=== PATIENT | male | born 1955 | race Caucasian/White ===

== ENCOUNTER → 2016-12-02 | Outpatient (CLI) | payer BC ==
--- NOTE | 2016-12-02 12:25 | REP ---
CT HEAD WITHOUT CONTRAST: HISTORY: Infarction. COMPARISON: 08/13/2016. Areas of confluent decreased attenuation are present in the periventricular and subcortical white matter of the parietal lobes. There is no intraparenchymal hemorrhage, mass or midline shift. The ventricular system and cortical sulci are dilated consistent with mild volume loss. There is no extracerebral collection. The visualized sinuses are clear. A 1.4 cm metallic foreign body is present overlying the nasal bones. IMPRESSION: There are areas of confluent decreased attenuation in the parietal lobes that are unchanged compared to the previous study. This may represent small vessel ischemic disease or the sequela of previous infectious , metabolic or toxic encephalopathy. Signed by Sergio Alvarado MD 12/02/2016 12:28 P
== END ==
LOC: M RAD 11:46
PROVIDERS: ATTEND Psychiatry & Neurology Neurology
DX: H53.462 Homonymous bilateral field defects, left side (principal); I63.09 Cerebral infarction due to thrombosis of other precerebral artery

== ENCOUNTER → 2017-02-23 | Day surgery (SDC) | payer BC ==
[~2017-02-23] VITALS: Ht 177.8 cm; Wt 92.1 kg
[~2017-02-23] MED LIST: ASPI1TAB24 PO; ATOR40TA PO; CHLO125TA PO; CLOP75TA2 PO; EPINEPHrine 1MG/ML INJ 30ML MD-VIAL As Ordered ONE; LATA5OPD OU; LIDOCAINE W/EPINEPHRINE 1% 20ML VIAL As Ordered ONE; LR 1,000 ML IV SCH; MIDAZOLAM INJ 2 MG/2 ML VIAL (J2250) As Ordered ONE; NITR4TASL SL; OMEP20CA3 PO; ONDANSETRON 4MG/2ML VIAL (J2405) As Ordered ONE; ONDANSETRON 4MG/2ML VIAL (J2405) IV PRN; PERI4TAB PO; POLYSPORIN TOPICAL OINTMENT 15GM As Ordered ONE; PROPOFOL 200 MG/20 ML VIAL As Ordered ONE; REFR1DRO6 OP; ROCURONIUM BROMIDE 50 MG/5 ML VIAL As Ordered ONE; SPIR25TA2 PO; SUCCINYLCHOLINE 100 MG/5 ML SYRINGE (J0330) As Ordered ONE; TYLE1TAB5 PO; TYLE325C PO; dexameTHASONE 4 MG/ML 1ML VIAL (J1100) As Ordered ONE; dexameTHASONE 4 MG/ML 1ML VIAL (J1100) IV ONE; fentaNYL 100 MCG/2 ML INJECTION (J3010) As Ordered ONE; fentaNYL 100 MCG/2 ML INJECTION (J3010) IV PRN
[2017-02-23 15:50] VITALS: BP 148/78
--- NOTE | 2017-03-07 10:44 | RO ---
DATE OF PROCEDURE: 02/23/2017 PREOPERATIVE DIAGNOSIS: Foreign body over the right nasal dorsum. POSTOPERATIVE DIAGNOSIS: Foreign body over the right nasal dorsum. PROCEDURE PERFORMED: Excision of the right nasal dorsum foreign body. SURGEON: Bradley Santa MD RETAIL PHARMACY TECHNICIAN: ANESTHESIA: General. CLINICAL PREAMBLE: This 62-year-old man was noticed to have a foreign body of metallic origin when SD was attempted. X-ray revealed a foreign object in the nasal dorsum in the right paramedian position. Management options including excision of the metallic foreign body from the nasal dorsum have been discussed. The patient understood and consented to the procedure. DESCRIPTION OF PROCEDURE: OR narration: Patient was identified in preoperative holding and had the location of the foreign marked over the right nasal dorsum. He was brought to the operating room in stable condition. In supine position on the operating table, patient received general anesthesia followed by orotracheal intubation without incident. Patient was prepped and draped in the usual fashion for the procedure. Both eyes were protected. The natural transverse skin crease was noted at the nasion of the right nasal dorsum. Incision was made in this natural skin crease. Dissection was carried down through the subcutaneous tissue to the level of the foreign body. This foreign body was successfully extracted en bloc. Surrounding fibrotic tissue was also resected as well. The surgical site was then closed using #5-0 Monocryl for deep closure as well as the final skin closure as well. At the end of the procedure, sponge and instrument counts were correct. No complication was encountered. Estimated blood loss was less than 1 mL. General anesthesia was reversed, and patient was extubated and brought to recovery room in stable condition.
== END | disposition home or self-care (01) ==
LOC: M SDC 10:52
PROVIDERS: ATTEND Otolaryngology
DX: S00.35XA Superficial foreign body of nose, initial encounter (principal); I10 Essential (primary) hypertension; I25.10 Atherosclerotic heart disease of native coronary artery without angina pectoris; E78.4 Other hyperlipidemia; I48.91 Unspecified atrial fibrillation; K57.30 Diverticulosis of large intestine without perforation or abscess without bleeding; Z98.61 Coronary angioplasty status; Z79.82 Long term (current) use of aspirin; Z79.899 Other long term (current) drug therapy; Y93.9 Activity, unspecified; Y92.9 Unspecified place or not applicable
CPT/HCPCS: 30310; 88300; J0330; J1100; J2250; J2405; J3010

== ENCOUNTER → 2017-02-25 | Outpatient (CLI) | payer BC ==
[~2017-02-25] MED LIST changes: -EPINEPHrine 1MG/ML INJ 30ML MD-VIAL As Ordered ONE; -LIDOCAINE W/EPINEPHRINE 1% 20ML VIAL As Ordered ONE; -LR 1,000 ML IV SCH; -MIDAZOLAM INJ 2 MG/2 ML VIAL (J2250) As Ordered ONE; -ONDANSETRON 4MG/2ML VIAL (J2405) As Ordered ONE; -ONDANSETRON 4MG/2ML VIAL (J2405) IV PRN; -POLYSPORIN TOPICAL OINTMENT 15GM As Ordered ONE; -PROPOFOL 200 MG/20 ML VIAL As Ordered ONE; -ROCURONIUM BROMIDE 50 MG/5 ML VIAL As Ordered ONE; -SUCCINYLCHOLINE 100 MG/5 ML SYRINGE (J0330) As Ordered ONE; -dexameTHASONE 4 MG/ML 1ML VIAL (J1100) As Ordered ONE; -dexameTHASONE 4 MG/ML 1ML VIAL (J1100) IV ONE; -fentaNYL 100 MCG/2 ML INJECTION (J3010) As Ordered ONE; -fentaNYL 100 MCG/2 ML INJECTION (J3010) IV PRN
--- NOTE | 2017-02-25 13:00 | REP ---
Is sent to views: Comparison is a 2015. On the comparisons study there wais a metallic shrapnel fragment anterior to the bridge of the nose. This is no longer present. Additionally, dental bridge work was present in the mandible previously. This is no longer present. No other radiopaque foreign bodies are identified. Signed by Chance Diaz MD 02/25/2017 12:51 P
== END ==
LOC: M RAD 09:36
PROVIDERS: ATTEND Psychiatry & Neurology Neurology
DX: S00.251A Superficial foreign body of right eyelid and periocular area, initial encounter (principal); X58.XXXA Exposure to other specified factors, initial encounter; Y92.89 Other specified places as the place of occurrence of the external cause; Y93.89 Activity, other specified; Y99.8 Other external cause status

== ENCOUNTER → 2017-03-10 | Outpatient (REF) | payer BC | LOC: M LABNEURO 13:20 | PROVIDERS: ATTEND Psychiatry & Neurology Neurology | DX: E88.9 Metabolic disorder, unspecified (principal) ==

== ENCOUNTER → 2018-01-20 | Outpatient (REF) | payer OTHER ==
[2018-01-20 12:43] LABS: TOTAL 25(OH) VITAMIN D 19.5 NG/ML (30.0-100.0); VITAMIN B12 LEVEL 641 PG/ML (247-911)
[2018-01-20 12:45] LABS: FREE T4 0.89 NG/DL (0.76-1.46); THYROID STIMULATING HORMONE 0.994 uIU/ML (0.358-3.740)
== END ==
LOC: M SFHCPLAZ 10:12
DX: R41.3 Other amnesia (principal)
CPT/HCPCS: 84443

== ENCOUNTER → 2018-02-16 | Outpatient (REF) | payer OTHER ==
[2018-02-16 12:21] LABS: PSA SCREENING 0.34 NG/ML (< 4.0)
== END ==
LOC: M SFHCPLAZ 09:10
DX: N40.1 Benign prostatic hyperplasia with lower urinary tract symptoms (principal)
CPT/HCPCS: 84153

== ENCOUNTER → 2018-02-22 | Outpatient (CLI) | payer OTHER | LOC: M RAD 13:53 | DX: K40.20 Bilateral inguinal hernia, without obstruction or gangrene, not specified as recurrent (principal) | CPT/HCPCS: 76857 ==

== ENCOUNTER → 2018-04-27 | Outpatient (REF) | payer OTHER ==
[2018-04-28 12:01] LABS: ALBUMIN 3.9 GM/DL (3.2-5.2); ALKALINE PHOSPHATASE 58 U/L (45-117); ALT/SGPT 31 U/L (12-78); ANION GAP 7 MEQ/L (8-16); AST/SGOT 18 U/L (7-37); BILIRUBIN,TOTAL 0.7 MG/DL (0.2-1.0); BLOOD UREA NITROGEN 27 MG/DL (7-18); CALCIUM LEVEL 8.9 MG/DL (8.8-10.2); CARBON DIOXIDE LEVEL 31 MEQ/L (21-32); CHLORIDE LEVEL 101 MEQ/L (98-107); CHOLESTEROL LEVEL 131 MG/DL (<200); CHOLESTEROL RISK RATIO 2.787 (<5); CREATININE FOR GFR 1.05 MG/DL (0.70-1.30); GLOMERULAR FILTRATION RATE > 60.0 (>49); GLUCOSE, FASTING 66 MG/DL (70-100); HDL CHOLESTEROL 47 MG/DL (>40); LDL CHOLESTEROL 65.6 MG/DL (<100); NON-HDL-C 84 MG/DL; POTASSIUM SERUM 3.8 MEQ/L (3.5-5.1); SODIUM LEVEL 139 MEQ/L (136-145); TOTAL PROTEIN 6.9 GM/DL (6.4-8.2); TRIGLYCERIDES LEVEL 92 MG/DL (<150)
[2018-04-28 14:04] LABS: HEMATOCRIT 46.1 % (42.0-52.0); HEMOGLOBIN 15.5 g/dl (13.5-17.5); MEAN CORPUSCULAR HEMOGLOBIN 31.1 pg (27.0-33.0); MEAN CORPUSCULAR HGB CONC 33.6 g/dl (32.0-36.5); MEAN CORPUSCULAR VOLUME 92.4 fl (80.0-96.0); PLATELET COUNT, AUTOMATED 201 10^3/uL (150-450); RED BLOOD COUNT 4.99 10^6/uL (4.30-6.10); RED CELL DISTRIBUTION WIDTH 12.6 % (11.5-14.5); WHITE BLOOD COUNT 7.2 10^3/uL (4.0-10.0)
[2018-04-28 14:10] LABS: ADD MANUAL DIFFER YES; DIFF SLIDE NUMBER 327
[2018-04-28 14:43] LABS: ANISOCYTOSIS 1+; ATYPICAL LYMPH 2 % (0-5); LYMPHOCYTES 65 % (16-52); MONOCYTES 7 % (0-8); NEUTROPHILS 26 % (35-75); PLATELET ESTIMATE NORMAL (NORMAL)
== END ==
LOC: M LAB REF 10:36
DX: I10 Essential (primary) hypertension (principal)

== ENCOUNTER → 2018-10-11 | Outpatient (REF) | payer OTHER, MEDICAID ==
[2018-10-11 13:32] LABS: HEMATOCRIT 40.8 % (42.0-52.0); HEMOGLOBIN 13.7 g/dl (13.5-17.5); MEAN CORPUSCULAR HEMOGLOBIN 31.3 pg (27.0-33.0); MEAN CORPUSCULAR HGB CONC 33.6 g/dl (32.0-36.5); MEAN CORPUSCULAR VOLUME 93.2 fl (80.0-96.0); PLATELET COUNT, AUTOMATED 206 10^3/uL (150-450); RED BLOOD COUNT 4.38 10^6/uL (4.30-6.10)
[2018-10-11 13:57] LABS: ANION GAP 8 MEQ/L (8-16); BLOOD UREA NITROGEN 22 MG/DL (7-18); CALCIUM LEVEL 8.7 MG/DL (8.8-10.2); CARBON DIOXIDE LEVEL 31 MEQ/L (21-32); CHLORIDE LEVEL 101 MEQ/L (98-107); CREATININE FOR GFR 1.05 MG/DL (0.70-1.30); GLOMERULAR FILTRATION RATE > 60.0 (>49); GLUCOSE, FASTING 76 MG/DL (70-100); POTASSIUM SERUM 3.4 MEQ/L (3.5-5.1); SODIUM LEVEL 140 MEQ/L (136-145)
== END ==
DX: I25.10 Atherosclerotic heart disease of native coronary artery without angina pectoris (principal)
CPT/HCPCS: 80048

== ENCOUNTER → 2018-12-28 | Outpatient (REF) | payer MEDICAID ==
[~2018-12-28] MED LIST changes: +ASPI-161 PO; -ASPI1TAB24 PO; -ATOR40TA PO; +ATOR40TA75 PO; +SPIR-10 PO; -SPIR25TA2 PO
[2018-12-28 12:20] LABS: BLOOD UREA NITROGEN 19 MG/DL (7-18); CALCIUM LEVEL 8.8 MG/DL (8.8-10.2); CARBON DIOXIDE LEVEL 31 MEQ/L (21-32); CHLORIDE LEVEL 101 MEQ/L (98-107); CHOLESTEROL LEVEL 128 MG/DL (<200); CHOLESTEROL RISK RATIO 3.121 (<5); CREATININE FOR GFR 1.15 MG/DL (0.70-1.30); GLOMERULAR FILTRATION RATE > 60.0 (>49); GLUCOSE, FASTING 100 MG/DL (70-100); HDL CHOLESTEROL 41 MG/DL (>40); LDL CHOLESTEROL 45 MG/DL (<100); NON-HDL-C 87 MG/DL; POTASSIUM SERUM 3.6 MEQ/L (3.5-5.1); SODIUM LEVEL 138 MEQ/L (136-145); TRIGLYCERIDES LEVEL 208 MG/DL (<150)
[2018-12-28 12:27] LABS: TOTAL 25(OH) VITAMIN D 38.2 NG/ML (30.0-100.0)
== END ==
LOC: M SFHCPLAZ 10:33
PROVIDERS: ATTEND Family Medicine
DX: Z13.1 Encounter for screening for diabetes mellitus (principal); E78.5 Hyperlipidemia, unspecified; I10 Essential (primary) hypertension; N40.1 Benign prostatic hyperplasia with lower urinary tract symptoms; E55.9 Vitamin D deficiency, unspecified

== ENCOUNTER 2019-01-23 09:03 | Day surgery (SDC) | payer MEDICAID ==
[~2019-01-23] VITALS: Ht 177.8 cm; Wt 94.8 kg
[~2019-01-23 09:03] MED LIST changes: +DONETAB6 PO; +FLOM0.4C39 PO; +FLON1SPR; +MAGN64TASA PO; +MEMA1TAB2 PO; +METO1TAB32 PO; +NS 1,000 ML IV ONE; +RANI150T PO; +REFR0.5D8 OP; +TRAN1TAB49 PO; +TRAZ-160 PO; +VENL150C43 PO; +XALA0.007 OU
[2019-01-23] MEDS ORDERED: LIDOCAINE 2% INJ 100 MG/5 ML SDV (FOR ANES.) As Ordered ONE (09:56)
[2019-01-23] MEDS ORDERED: PROPOFOL 200 MG/20 ML VIAL As Ordered ONE (09:56)
--- NOTE | 2019-01-23 10:37 | ROOR ---
Patient Name: Sergio Jennings Procedure Date: 01/23/2019 10:10 AM Date of : 1955 Age: 63 Room: [facility] Gender: Male Note Status: Finalized Procedure: Total Colonoscopy to Cecum Indications: Screening for colorectal malignant neoplasm Providers: Lalito Steinberg MD Referring MD: Claudio Schultz MD Requesting Provider: Medicines: Monitored Anesthesia Care Complications: No immediate complications. Procedure: Pre-Anesthesia Assessment: - The heart rate, respiratory rate, oxygen saturations, blood pressure, adequacy of pulmonary ventilation, and response to care were monitored throughout the procedure. The Colonoscope was introduced through the anus and advanced to the cecum, identified by appendiceal orifice and ileocecal valve. The colonoscopy was performed without difficulty. The patient tolerated the procedure well. The quality of the bowel preparation was excellent. Findings: The perianal and digital rectal examinations were normal. No other significant abnormalities were identified in a careful examination of the remainder of the colon. The exam was otherwise without abnormality on direct and retroflexion views. Impression: - The examination was otherwise normal on direct and retroflexion views. - No specimens collected. - The exam was otherwise normal to the cecum. Recommendation: - Patient has a contact number available for emergencies. The signs and symptoms of potential delayed complications were discussed with the patient. Return to normal activities tomorrow. Written discharge instructions were provided to the patient. - High fiber diet. - Discharge patient to home. - Continue present medications. - Repeat colonoscopy in 10 years for screening purposes. - Return to referring physician. - The findings and recommendations were discussed with the patient's family. Lalito Steinberg MD Lalito Steinberg MD 01/23/2019 10:36:43 AM This report has been signed electronically. Number of Addenda: 0 Note Initiated On: 01/23/2019 10:10 AM Estimated Blood Loss: Estimated blood loss: none.
[2019-01-23 11:02] VITALS: BP 161/98
== END 2019-01-23 11:15 | disposition home or self-care (01) ==
LOC: M OPP 09:03
PROVIDERS: ATTEND Internal Medicine Gastroenterology
DX: Z12.11 Encounter for screening for malignant neoplasm of colon (principal); R12 Heartburn; Z79.82 Long term (current) use of aspirin; Z79.899 Other long term (current) drug therapy; Z87.891 Personal history of nicotine dependence

== ENCOUNTER 2019-02-13 09:26 | Emergency (ER) | payer BC, MEDICAID ==
[~2019-02-13] VITALS: Ht 177.8 cm; Wt 96.4 kg
[~2019-02-13 09:26] MED LIST changes: -NS 1,000 ML IV ONE
[2019-02-13 10:37] LABS: BASO % 0.5 % (0.0-1.0); EOS # 0.2 10^3/uL (0.0-0.50); EOS % 2.4 % (0.0-3.0); HEMATOCRIT 39.1 % (42.0-52.0); HEMOGLOBIN 13.3 g/dl (13.5-17.5); LYMPH # 3.8 10^3/uL (1.5-4.5); LYMPH % 49.6 % (24.0-44.0); MEAN CORPUSCULAR HEMOGLOBIN 31.1 pg (27.0-33.0); MEAN CORPUSCULAR VOLUME 91.4 fl (80.0-96.0); MONO # 0.5 10^3/uL (0.0-0.8); MONO % 6.2 % (0.0-5.0); NEUTROPHILS # 3.1 10^3/uL (1.8-7.7); PLATELET COUNT, AUTOMATED 199 10^3/uL (150-450); RED BLOOD COUNT 4.28 10^6/uL (4.30-6.10); WHITE BLOOD COUNT 7.6 10^3/uL (4.0-10.0)
[2019-02-13 11:01] LABS: ALBUMIN 3.7 GM/DL (3.2-5.2); ALT/SGPT 41 U/L (12-78); BILIRUBIN,DIRECT 0.1 MG/DL (0.0-0.2); BILIRUBIN,TOTAL 0.4 MG/DL (0.2-1.0); BLOOD UREA NITROGEN 15 MG/DL (7-18); CALCIUM LEVEL 8.4 MG/DL (8.8-10.2); CARBON DIOXIDE LEVEL 33 MEQ/L (21-32); CHLORIDE LEVEL 105 MEQ/L (98-107); CPK CREATINE PHOSPHOKINASE 72 U/L (39-308); CREATININE FOR GFR 0.98 MG/DL (0.70-1.30); GLOMERULAR FILTRATION RATE > 60.0 (>49); GLUCOSE, FASTING 82 MG/DL (70-100); LIPASE 195 U/L (73-393); MB/CK RELATIVE INDEX 2.08 (< OR =4); POTASSIUM SERUM 3.8 MEQ/L (3.5-5.1); SODIUM LEVEL 140 MEQ/L (136-145); TOTAL PROTEIN 6.5 GM/DL (6.4-8.2); TROPONIN I < 0.02 NG/ML (< 0.10)
[2019-02-13] MEDS ORDERED: ISOVUE-370 76% 125ML VIAL (Q9967 PER ML) As Ordered ONE (11:13)
--- NOTE | 2019-02-13 12:05 | REP ---
CT ABDOMEN AND PELVIS WITH IV CONTRAST: TECHNIQUE: Axial contrast enhanced images from the lung bases to the pubic symphysis using 100 mL Isovue 370 intravenous contrast material with multiplanar reformations. In the visualized lung bases, there is patchy parenchymal opacity in the right middle lobe inferomedially and also in the inferior lingula. This may represent fibroatelectatic change. However, mild infiltrate could also have this appearance. The liver, spleen, adrenals, pancreas, and kidneys are unremarkable. There is no hydronephrosis bilaterally. There is mild to moderate atherosclerotic calcification of the abdominal aorta. There is dilatation of the distal abdominal aorta up to 3.5 cm. Right common iliac artery is also dilated up to 1.8 cm in diameter. I see no adenopathy. There is no free air or free fluid. I see no bowel wall thickening. There is no evidence of appendicitis. No pelvic mass is seen. There is a small right inguinal hernia containing fat. There is a slightly larger left inguinal hernia containing fat as well as a small portion of sigmoid colon. There is no bowel obstruction. The urinary bladder is unremarkable. IMPRESSION: No evidence of appendicitis. No free air or free fluid. Mild bibasilar fibroatelectatic change versus early infiltrate. Small abdominal aortic aneurysm distally 3.5 cm in diameter with ectasia of the right common iliac artery 1.8 cm in diameter. Small right inguinal hernia contains fat. Slightly larger left inguinal hernia contains a small portion of sigmoid colon but does not cause bowel obstruction. Electronically Signed by Chance Martin MD 02/15/2019 10:58 A
[2019-02-13 14:41] VITALS: BP 128/78
--- NOTE | 2019-02-13 15:33 | ECGEPIP ---
Stationary ECG Study [facility] - ED Test Date: 2019-02-13 Pat Name: CJ ALBERTS Department: Room: - Gender: M Counsellors: : 1955 Requested By: Candy Kaminski Order Number: [id number] Reading MD: Osvaldo Rodriguez Measurements Intervals [place] Rate: 69 P: 40 VA: 173 QRS: 26 QRSD: 110 T: 46 QT: 381 QTc: 408 Interpretive Statements SINUS RHYTHM INCOMPLETE RIGHT BUNDLE BRANCH BLOCK NO PRIORS FOR COMPARISON Electronically Signed On 02-13-2019 15:32:55 EDT by Osvaldo Rodriguez
--- NOTE | 2019-02-15 12:06 | ED PDOC ---
Post-Departure Follow-Up dr cai and dr bloom faxed formal report of ct abd/p for fu Kate Chambers MD Feb 15, 2019 12:06
== END 2019-02-13 14:42 | disposition home or self-care (01) ==
LOC: M ED 09:26
DX: R10.9 Unspecified abdominal pain (principal); I71.4 Abdominal aortic aneurysm, without rupture; I45.19 Other right bundle-branch block; K40.20 Bilateral inguinal hernia, without obstruction or gangrene, not specified as recurrent; I10 Essential (primary) hypertension; F32.9 Major depressive disorder, single episode, unspecified; F03.90 Unspecified dementia, unspecified severity, without behavioral disturbance, psychotic disturbance, mood disturbance, and anxiety; Z79.82 Long term (current) use of aspirin; Z79.899 Other long term (current) drug therapy
CPT/HCPCS: 74177; 80048; 80076; 81001; 82550; 82553; 83690; 85025; 86850; 86900; 86901; 93005; 93041; 99285; Q9967

== ENCOUNTER → 2019-02-24 | Outpatient (CLI) | payer MEDICAID ==
--- NOTE | 2019-02-24 10:27 | REP ---
ULTRASOUND ABDOMINAL AORTA: Real-time sonographic evaluation of the abdominal aorta is performed and correlated with recent CT exam 02/13/2019. There is fusiform aneurysmal dilatation of the distal abdominal aorta with minimal AP diameter of 3.7 cm. The very proximal aspect of the abdominal aorta just below the diaphragm is obscured by overlying bowel gas. Mid aspect of the abdominal aorta measures 2.1-2.3 cm in maximum AP dimension and distally just above the bifurcation 2.3 cm in maximum AP dimension. Common iliac arteries are mildly ectatic, right measuring 1.6 cm and the left 1.5 cm in AP dimension. Scattered atherosclerotic calcifications are present. IMPRESSION: Fusiform aneurysmal dilatation of the distal abdominal aorta with maximum AP diameter 3.7 cm. Electronically Signed by Chance Martin MD 02/24/2019 03:33 P
== END ==
LOC: M RAD 09:13
PROVIDERS: ATTEND Family Medicine
DX: I71.4 Abdominal aortic aneurysm, without rupture (principal)

== ENCOUNTER → 2019-06-28 | Outpatient (REF) | payer MEDICARE, MEDICAID ==
[~2019-06-28] MED LIST changes: +LATA0.0013 OU; -LATA5OPD OU; -OMEP20CA3 PO; +OMEP20CA4 PO; -TRAZ-160 PO; +TRAZ-252 PO
[2019-06-28 13:32] LABS: BLOOD UREA NITROGEN 16 MG/DL (7-18); CALCIUM LEVEL 9.1 MG/DL (8.8-10.2); CARBON DIOXIDE LEVEL 31 MEQ/L (21-32); CHLORIDE LEVEL 102 MEQ/L (98-107); CREATININE FOR GFR 1.06 MG/DL (0.70-1.30); GLOMERULAR FILTRATION RATE > 60.0 (>49); GLUCOSE, FASTING 85 MG/DL (70-100); POTASSIUM SERUM 3.4 MEQ/L (3.5-5.1); SODIUM LEVEL 138 MEQ/L (136-145)
[2019-06-28 13:47] LABS: HEMOGLOBIN A1c 5.5 %
== END ==
LOC: M SFHCPLAZ 11:00
PROVIDERS: ATTEND Family Medicine
DX: R73.03 Prediabetes (principal)
CPT/HCPCS: 36415; 80048; 83036; G0463

== ENCOUNTER 2019-08-12 10:33 | Inpatient (IN) | payer MEDICARE, MEDICAID ==
[~2019-08-12] VITALS: Ht 182.9 cm; Wt 101.2 kg
[~2019-08-12 10:33] MED LIST changes: -FLON1SPR; +FLON1SPR NARES; -REFR0.5D8 OP; +REFR0.5D8 OU
[2019-08-12] MEDS ORDERED: AMIODARONE 150MG/3ML INJ (J0282) IVP STA (10:37)
[2019-08-12] MEDS ORDERED: AMIODARONE HCL 150 MG/100 ML PREMIXED BAG (NEXTERONE) As Ordered ONE (10:51)
[2019-08-12 10:58] LABS: HEMATOCRIT 41.1 % (42.0-52.0); HEMOGLOBIN 14.2 g/dl (13.5-17.5); MEAN CORPUSCULAR HEMOGLOBIN 32.1 pg (27.0-33.0); MEAN CORPUSCULAR HGB CONC 34.5 g/dl (32.0-36.5); PLATELET COUNT, AUTOMATED 248 10^3/uL (150-450); RED BLOOD COUNT 4.42 10^6/uL (4.30-6.10)
[2019-08-12 10:59] LABS: WHITE BLOOD COUNT 20.5 10^3/uL (4.0-10.0)
[2019-08-12] MEDS: AMIODARONE HCL 150 MG in APPROPRIATE DILUENT 1 EA IV SCH ×2 (11:00→11:10)
[2019-08-12] MEDS ORDERED: AMIODARONE HCL 150 MG in APPROPRIATE DILUENT 1 EA IV STA (11:20)
[2019-08-12 11:22] LABS: CALCIUM LEVEL 8.8 MG/DL (8.8-10.2); CK-MB VALUE MASS 3.9 NG/ML (<3.6); CREATININE FOR GFR 1.99 MG/DL (0.70-1.30); GLOMERULAR FILTRATION RATE 36.4 (>49); MB/CK RELATIVE INDEX 3.75 (< OR =4); POTASSIUM SERUM 3.7 MEQ/L (3.5-5.1); TROPONIN I 0.55 NG/ML (< 0.10)
[2019-08-12 11:25] LABS: ATYPICAL LYMPH 1 % (0-5); LYMPHOCYTES 35 % (16-44); MONOCYTES 10 % (0-5); NEUTROPHILS 54 % (28-66); PLATELET ESTIMATE NORMAL (NORMAL)
[2019-08-12] MEDS ORDERED: NS 1,000 ML IV ONE (11:30)
--- NOTE | 2019-08-12 12:03 | REP ---
REASON: Dyspnea. PRIORS: None. The technique utilized in obtaining the radiograph has magnified the cardiac silhouette and accentuated the interstitial markings. The interstitial markings are slightly diffusely increased with a mild haziness seen throughout the vascularity with evidence to suggest pulmonary vascular redistribution, but on this limited portable exam, early Kelly B lines can not be ruled out. The pleural angles are sharp. There are no patchy parenchymal opacities. The osseous structures are normal. IMPRESSION: Possible early CHF. Electronically Signed by Francesco Ramos DO 08/12/2019 12:26 P
[2019-08-12] MEDS ORDERED: SLOWTAB2 PO (12:09)
[2019-08-12] MEDS ORDERED: ACET1TAB55 PO (12:09)
[2019-08-12] MEDS ORDERED: CHLO25TA PO (12:09)
[2019-08-12] MEDS ORDERED: MEXILETINE 150 MG CAP PO ONE (12:30)
[2019-08-12] MEDS ORDERED: ACETAMINOPHEN 650 MG SUPP PR PRN (12:30)
[2019-08-12] MEDS ORDERED: SCOPOLAMINE 1MG TRANSDERMAL PATCH TOP PRN (12:30)
[2019-08-12 14:00] VITALS: BP 142/95
--- NOTE | 2019-08-12 20:21 | HPEPDOC ---
General Date of Admission Aug 12, 2019 at 12:30 Date of Service: Aug 12, 2019 Primary Care Physician: FRANCISCO JAVIER RAE MD Chief Complaint The patient is a 64-year-old male admitted with a reason for visit of Sustained Ventricular Tachycardia. Source: Old records Exam Limitations: Mild cognitive slowing Timing/Duration: This afternoon Severity: Severe Associated Symptoms: Unobtainable History of Present Illness This is a 64-year-old male with a history of dementia. He had acute onset of ventricular tachycardia. This was sustained. It was unresponsive to any inter ventions such as amiodarone or mexiletine. The patient had an advanced directive in the form of a MOLST that clearly stated he was DNR. We explained to the patient that he could rescind his DNR in order to undergo cardioversion but he clearly stated to leave it as it was. His brother supported his wishes. The patient complained of mild stomach discomfort. Otherwise, he denied any symptoms. He did not have any chest pain or shortness of breath. Home Medications Scheduled Aspirin (Aspirin EC) 81 Mg Tab, 81 MG PO DAILY, (Reported) Atorvastatin Calcium (Atorvastatin Calcium) 40 Mg Tab, 40 MG PO QHS, (Reported) Chlorthalidone (Chlorthalidone) 25 Mg Tablet, 25 MG PO DAILY, (Reported) Donepezil Hcl (Donepezil HCl Odt) 10 Mg Tab, 10 MG PO DAILY, (Reported) Fluticasone Propionate (Flonase Allergy Relief) 50 Mcg/Act Spr, 1 SPRAY NARES QHS, (Reported) Latanoprost (Xalatan) 0.005 % Geraldine, 1 DROP OU DAILY, (Reported) Magnesium Chloride (Slow-Mag) 71.5 Mg Tablet.dr, 71.5 MG PO DAILY, (Reported) Memantine HCl (Memantine HCl) 10 Mg Tab, 10 MG PO BID, (Reported) Metoprolol Succinate (Metoprolol Succinate) 25 Mg Tab, 25 MG PO DAILY, (Reported) Ranitidine HCl (Ranitidine HCl) 150 Mg Tab, 1 TAB PO QHS, (Reported) Tamsulosin HCl (Flomax) 0.4 Mg Cap, 0.4 MG PO DAILY, (Reported) Trandolapril (Trandolapril) 4 Mg Tab, 4 MG PO DAILY, (Reported) Venlafaxine HCl (Venlafaxine HCl ER) 150 Mg Cap, 150 MG PO DAILY, (Reported) Scheduled PRN Acetaminophen (Acetaminophen) 325 Mg Tablet, 325 MG PO Q4H PRN for PAIN, (Reported) Carboxymethylcellulose Sodium (Refresh Tears) 0.5 % Krishna, 1 DROP OU for DRY EYES, (Reported) Nitroglycerin (Nitrostat) 0.4 Mg Subl, 0.4 MG SL Q5MP PRN for CHEST PAIN, (Reported) Trazodone HCl (Trazodone HCl) 50 Mg Tab, 50 MG PO QHS PRN for INSOMNIA, (Reported) Allergies Coded Allergies: No Known Allergies (Unverified , 08/12/19) Past Medical History Medical History History is obtained from review of the medical record. Patient has a history of abdominal aortic aneurysm of 3.5 cm, basal cell carcinoma, history of stroke with some residual motor deficit, the aforementioned Alzheimer's dementia, coronary artery disease for which he's undergone percutaneous intervention and stent placement, essential hypertension, gastroesophageal reflux disease. Surgical History Surgical history per medical record review includes right knee arthroscopic surgery, right inguinal hernia repair Family History There is maternal history of coronary artery disease, skin cancer and Alzheimer's. There is paternal history of prostate cancer. Social History * Smoker: former Smoker (reported remote for 5 years) Alcohol: occationally Drugs: denies Psychosocial History: Dementia The patient apparently lives with his brother. I otherwise am unable to elicit other social history. A-FIB/CHADSVASC A-FIB History Current/History of A-Fib/PAF?: No Current PO Anticoag Therapy: No Review of Systems Other systems 10 systems review is otherwise negative; I am unable to have full conversation with the patient and there is limited information in the medical records. Physical Examination General Exam: Positive: Cooperative, No Acute Distress Eye Exam: Positive: PERRLA, Conjunctiva & lids normal ENT Exam: Positive: Atraumatic, Mucous membr. moist/pink, Nares Patent Neck Exam: Positive: Supple; Negative: JVD, thyromegaly, +2 carotid pulse wo bruit, Lymphadenopathy, Other Chest Exam: Positive: Clear to auscultation, Normal air movement Heart Exam: Positive: Tachycardic Abdomen Exam: Positive: Normal bowel sounds Extremity Exam: Positive: Normal pulses; Negative: Clubbing, Cyanosis, Edema Skin Exam: Positive: Lesion (areas of prior basal cell carcinoma lesions) Neuro Exam: Positive: Normal Speech (when he speaks) Psych Exam: Positive: Mood NL, Oriented x 3 Other physical findings The patient was diaphoretic. He also developed worsening cyanosis to his anterior chest wall with pallor and coolness to his distal extremities. Vital Signs Vital Signs Date Time Temp Pulse Resp B/P (MAP) Pulse Ox O2 Delivery O2 Flow Rate FiO2 08/12/19 14:00 189 30 142/95 (111) 93 5.0 08/12/19 13:52 96.7 Non-Rebreather Laboratory Data Labs 24H Laboratory Tests 2 08/12/19 10:45: White Blood Count 20.5H, Red Blood Count 4.42, Hemoglobin 14.2, Hematocrit 41.1L, Mean Corpuscular Volume 93.0, Mean Corpuscular Hemoglobin 32.1, Mean Corpuscular Hemoglobin Concent 34.5, Red Cell Distribution Width 13.0, Platelet Count 248, Lymphocytes # (Auto) , Nucleated Red Blood Cells % (auto) 0.0, Neutrophils 54, Lymphocytes (Manual) 35, Monocytes (Manual) 10H, Atypical Lymphocytes 1, Platelet Estimate NORMAL, Anion Gap 12, Glomerular Filtration Rate 36.4L, Blood Urea Nitrogen 47H, Creatinine 1.99H, Sodium Level 135L, Potassium Level 3.7, Chloride Level 100, Carbon Dioxide Level 23, Calcium Level 8.8, Total Creatine Kinase 104, Creatine Kinase MB 3.9H, Creatine Kinase MB Relative Index 3.75, Troponin I 0.55H CBC/BMP Laboratory Tests 08/12/19 10:45 Red Blood Count 4.42, Mean Corpuscular Volume 93.0, Mean Corpuscular Hemoglobin 32.1, Mean Corpuscular Hemoglobin Concent 34.5, Red Cell Distribution Width 13.0, Lymphocytes # (Auto) , Calcium Level 8.8, Total Creatine Kinase 104 Assessment/Plan This is a 64-year-old male with sustained ventricular tachycardia that has been unresponsive to amiodarone, mexiletine, or other medical management. The patient declines cardioversion as part of his advanced directive. His heart rate continues in excess of 185. Plans are to place the patient on the [facility] floor under comfort measures. He'll receive medications for any distress he may have. Family members are with him at bedside. Plan / VTE VTE Prophylaxis Ordered?: No (patient is comfort measures only.) Plan Diet: Continue Current Activity: Bedrest Anticipated Discharge: Other Anticipated D/C (the patient is likely to .) Advanced Directives: Do Not Resuscitate (DNR), Do Not Intubate (DNI), Allow Natural (AND), Comfort Care Measures RIZWAN WOLFF MD Aug 12, 2019 20:21
[2019-08-12] MEDS: LORazepam 0.5 MG TAB PO PRN (23:06)
[2019-08-12] MEDS: MORPHINE 4 MG/ML 1ML VIAL/SYRINGE (J2270) IV PRN (23:07)
[2019-08-13] MEDS: MORPHINE 4 MG/ML 1ML VIAL/SYRINGE (J2270) IV PRN ×6 (02:22→23:47)
[2019-08-13] MEDS: LORazepam 0.5 MG TAB PO PRN ×4 (02:58→15:41)
[2019-08-13] MEDS ORDERED: MORPHINE 4 MG/ML 1ML VIAL/SYRINGE (J2270) IV ONE (04:00)
--- NOTE | 2019-08-13 05:49 | ECGEPIP ---
[facility] - ED Test Date: 2019-08-12 Pat Name: CJ ALBERTS Department: Room: [place] [address] Gender: Male Medical Laboratory Technician: : 1955 Requested By: Osvaldo Desouza Order Number: [id number] Reading MD: Osvaldo Rodriguez Measurements Intervals [place] Rate: 199 P: ID: 0 QRS: 123 QRSD: 178 T: 0 QT: 239 QTc: 435 Interpretive Statements VENTRICULAR TACHYCARDIA RIGHT BUNDLE BRANCH BLOCK LEFT POSTERIOR FASCICULAR BLOCK MARKED ST DEPRESSION, CONSIDER SUBENDOCARDIAL INJURY Electronically Signed on 08-13-2019 5:49:12 EDT by Osvaldo Rodriguez
--- NOTE | 2019-08-13 19:45 | IPNPDOC ---
Text Note Date of Service The patient was seen on 08/13/19. NOTE Mr. Jennings is being kept comfortable. He has sustained ventricular tachycardia. He does not appear to have any pain. Objective: Physical exam: General: Patient is alternately cyanotic and pale to appearance. He has overall clamminess. Cardiovascular: Patient has rapid heart rate to auscultation and this is reflected in his jugular pulse. Respiratory: Clear to auscultation. Abdomen: Soft. Extremities: Cool to touch, clammy, no edema. Neuro: Patient is able to follow commands ASSESSMENT/PLAN: This is a 64-year-old male who had acute onset of ventricular tachycardia. This has been sustained. It has been unresponsive to any medical interventions such as amiodarone or mexiletine. The patient's CODE STATUS is DNR/DNI and he strongly indicated in the emergency room he did not wish to undergo cardioversion. His brother, who is his medical power of assistant attorney general, supported his wishes. There may be family members who want to rescind the patient's DNR. This raises legal and ethical concerns. This will be discussed with case management tomorrow. We will also contact cardiology services for assistance. VS,Fishbone, I+O VS, Fishbone, I+O Vital Signs Date Time Temp Pulse Resp B/P (MAP) Pulse Ox O2 Delivery O2 Flow Rate FiO2 08/13/19 15:52 18 08/13/19 07:10 15.0 08/12/19 14:00 189 142/95 (111) 93 08/12/19 13:52 96.7 Non-Rebreather I&O- Last 24 Hours up to 6 AM 08/13/19 06:00 Intake Total 1610 ml Output Total 250 ml Balance 1360 ml RIZWAN WOLFF MD Aug 13, 2019 19:45
[2019-08-13] MEDS: LORazepam 2 MG/ML VIAL (J2060) IV PRN (20:57)
[2019-08-14] MEDS: LORazepam 2 MG/ML VIAL (J2060) IV PRN ×4 (01:18→18:06)
[2019-08-14] MEDS: MORPHINE 4 MG/ML 1ML VIAL/SYRINGE (J2270) IV PRN ×7 (05:00→19:32)
[2019-08-14] MEDS: MORPHINE 10MG/0.5ML ORAL CONCENTRATE SOLUTION U/D SL PRN ×4 (15:08→21:20)
[2019-08-14] MEDS ORDERED: LORazepam 2 MG/ML VIAL (J2060) IV PRN (19:30)
[2019-08-14] MEDS ORDERED: ATROPINE SULFATE 1% OP SOLN 2 ML BTL SL PRN (19:30)
--- NOTE | 2019-08-14 21:25 | IPNPDOC ---
Text Note Date of Service The patient was seen on 08/14/19. NOTE Subjective: Mr. Jennings has decreased responsiveness. Patient was admitted with sustained ventricular tachycardia. He likely has cardiogenic shock as a result. He is appearing to have some discomfort with pain. He is requiring O2 by nonrebreather mask. On admission the patient had a troponin of 0.55. This may be consistent with non-ST elevation AL. We do not have a means of clinically assessing this. Patient was also noted to have an elevated creatinine at 1.99 and could be said to have acute kidney injury. 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 Objective: Physical exam: General: Patient is alternately cyanotic and pale to appearance. He has overall clamminess. Cardiovascular: Patient has rapid heart rate to auscultation and this is reflected in his jugular pulse. Respiratory: The patient has shallow respirations with occasional coarse breath sounds, indicative of increased secretion Abdomen: Soft. Extremities: Cool to touch, clammy, no edema. Neuro: Patient is of decreased responsiveness to tactile and auditory stim ASSESSMENT/PLAN: This is a 64-year-old male who had acute onset of ventricular tachycardia. This has been sustained. It has been unresponsive to any medical interventions such as amiodarone or mexiletine. The patient's CODE STATUS is DNR/DNI and he strongly indicated in the emergency room he did not wish to undergo cardioversion. His brother, who is his medical power of gun stocker, supported his wishes. There may be family members who want to rescind the patient's DNR. This has raised legal and ethical concerns. This has been discussed with risk management, the cardiology service and the medical power of gun stocker. Cardioversion is still not an option per the patient's advanced directive. If family members want to pursue rescinding his DNR this will need an ethics inquiry. Possible medical o ption would be giving the patient a dose of lidocaine but this could also trigger a fatal arrhythmia such as ventricular fibrillation. It also would not be a long-term solution. The patient's brother, who is his medical power of gun stocker, continues to support his brother's wishes and the patient's children do as well. 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 We have made adjustments to medications such as morphine, Ativan and scopolamine for his comfort. VS,Fishbone, I+O VS, Fishbone, I+O Vital Signs Date Time Temp Pulse Resp B/P (MAP) Pulse Ox O2 Delivery O2 Flow Rate FiO2 08/14/19 07:45 15.0 08/13/19 15:52 18 08/12/19 14:00 189 142/95 (111) 93 08/12/19 13:52 96.7 Non-Rebreather I&O- Last 24 Hours up to 6 AM 08/14/19 06:00 Intake Total 0 ml Balance 0 ml RIZWAN WOLFF MD Aug 14, 2019 21:25
--- NOTE | 2019-08-15 00:01 | DS.PDOC ---
Discharge Summary General Date of Admission Aug 12, 2019 at 12:30 Date of Discharge Time of : 23:25 Date of : August 14, 2019 Primary Care Physician: FRANCISCO JAVIER RAE MD Discharge Summary PROCEDURES PERFORMED DURING STAY: None. ADMITTING DIAGNOSES: 1. Sustained ventricular tachycardia. DISCHARGE DIAGNOSES: 1. Sustained ventricular tachycardia, cardiogenic shock, probable non-ST cece vation RI, acute kidney injury, Dementia, abdominal aortic aneurysm, basal cell carcinoma, history of stroke, coronary artery disease, essential hypertension, gastroesophageal reflux disease. COMPLICATIONS/CHIEF COMPLAINT: Sustained Ventricular Tachycardia. HISTORY OF PRESENT ILLNESS/HOSPITAL COURSE: This is a 64-year-old male with a history of dementia. He had acute onset of ventricular tachycardia. This was sustained. It was unresponsive to any interventions such as amiodarone or mexiletine. The patient had an advanced directive in the form of a MOLST that clearly stated he was DNR. We explained to the patient that he could rescind his DNR in order to undergo cardioversion but he clearly stated to leave it as it was. His brother , who was his medical power of criminal attorney supported his wishes. The patient complained of mild stomach discomfort. Otherwise, he denied any symptoms. He did not have any chest pain or shortness of breath. 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 Comfort measu res in place included medication for pain, anxiety and secretions. The patient continued in sustained V. tach for a day or so. We presume he had cardiogenic shock and probable non-ST elevation RI. On the day of , the patient's heart rate slowly decreased, he was of decreased level of consciousness and shallow respirations. He subsequently at 2325. . DISCHARGE MEDICATIONS: Please see below. ALLERGIES: Please see below. PHYSICAL EXAMINATION ON DISCHARGE: This group underwriter was not present at the time of the patient's VITAL SIGNS: Please see below LABORATORY DATA: Please see below. DISPOSITION: . The patient is ITEMS TO FOLLOWUP ON ON OUTPATIENT: 1. Not applicable. DISCHARGE CONDITION: Stable. TIME SPENT ON DISCHARGE: Greater than 35 minutes. Vital Signs/I&Os Vital Signs Date Time Temp Pulse Resp B/P (MAP) Pulse Ox O2 Delivery O2 Flow Rate FiO2 08/14/19 21:20 15.0 08/13/19 15:52 18 08/12/19 14:00 189 142/95 (111) 93 08/12/19 13:52 96.7 Non-Rebreather I&O- Last 24 Hours up to 6 AM 08/14/19 06:00 Intake Total 0 ml Balance 0 ml Discharge Medications Scheduled Aspirin (Aspirin EC) 81 Mg Tab, 81 MG PO DAILY, (Reported) Atorvastatin Calcium (Atorvastatin Calcium) 40 Mg Tab, 40 MG PO QHS, (Reported) Chlorthalidone (Chlorthalidone) 25 Mg Tablet, 25 MG PO DAILY, (Reported) Donepezil Hcl (Donepezil HCl Odt) 10 Mg Tab, 10 MG PO DAILY, (Reported) Fluticasone Propionate (Flonase Allergy Relief) 50 Mcg/Act Spr, 1 SPRAY NARES QHS, (Reported) Latanoprost (Xalatan) 0.005 % Geraldine, 1 DROP OU DAILY, (Reported) Magnesium Chloride (Slow-Mag) 71.5 Mg Tablet.dr, 71.5 MG PO DAILY, (Reported) Memantine HCl (Memantine HCl) 10 Mg Tab, 10 MG PO BID, (Reported) Metoprolol Succinate (Metoprolol Succinate) 25 Mg Tab, 25 MG PO DAILY, (Reported) Ranitidine HCl (Ranitidine HCl) 150 Mg Tab, 1 TAB PO QHS, (Reported) Tamsulosin HCl (Flomax) 0.4 Mg Cap, 0.4 MG PO DAILY, (Reported) Trandolapril (Trandolapril) 4 Mg Tab, 4 MG PO DAILY, (Reported) Venlafaxine HCl (Venlafaxine HCl ER) 150 Mg Cap, 150 MG PO DAILY, (Reported) Scheduled PRN Acetaminophen (Acetaminophen) 325 Mg Tablet, 325 MG PO Q4H PRN for PAIN, (Reported) Carboxymethylcellulose Sodium (Refresh Tears) 0.5 % Krishna, 1 DROP OU for DRY EYES, (Reported) Nitroglycerin (Nitrostat) 0.4 Mg Subl, 0.4 MG SL Q5MP PRN for CHEST PAIN, (Reported) Trazodone HCl (Trazodone HCl) 50 Mg Tab, 50 MG PO QHS PRN for INSOMNIA, (Reported) Allergies Coded Allergies: No Known Allergies (Unverified , 08/12/19) RIZWAN WOLFF MD Aug 15, 2019 00:01
== END 2019-08-14 23:25 | disposition expired ==
LOC: M ED 10:33 → EDBD 10:33 → M ED INP 12:30 → M MS5PR 13:56
PROVIDERS: ADMIT Internal Medicine; ATTEND Internal Medicine
DX: I47.2 Ventricular tachycardia (principal); I21.4 Non-ST elevation (NSTEMI) myocardial infarction; N17.9 Acute kidney failure, unspecified; R57.0 Cardiogenic shock; Z51.5 Encounter for palliative care; G30.9 Alzheimer's disease, unspecified; I71.4 Abdominal aortic aneurysm, without rupture; Z86.73 Personal history of transient ischemic attack (TIA), and cerebral infarction without residual deficits; I25.10 Atherosclerotic heart disease of native coronary artery without angina pectoris; I10 Essential (primary) hypertension; K21.9 Gastro-esophageal reflux disease without esophagitis; Z66 Do not resuscitate; Z79.82 Long term (current) use of aspirin; Z79.899 Other long term (current) drug therapy; F02.80 Dementia in other diseases classified elsewhere, unspecified severity, without behavioral disturbance, psychotic disturbance, mood disturbance, and anxiety